=== PATIENT | female | born 2000 | race Caucasian/White ===

== ENCOUNTER 2018-10-22 19:33 | Emergency (ER) | payer OTHER | END 2018-10-22 20:44 | disposition short-term general hospital (02) | LOC: MADERS 19:33 | DX: M79.662 Pain in left lower leg (principal); Z86.718 Personal history of other venous thrombosis and embolism; Z86.711 Personal history of pulmonary embolism; F41.9 Anxiety disorder, unspecified; F32.9 Major depressive disorder, single episode, unspecified; Z79.899 Other long term (current) drug therapy; Z79.01 Long term (current) use of anticoagulants | CPT/HCPCS: 99284 ==